=== PATIENT | female | born 1965 | race African-American/Black ===

== ENCOUNTER 2017-09-26 06:09 | Day surgery (SDC) | payer OTHER ==
[2017-09-17 13:56] VITALS: BMI 31.9
[2017-09-26] MEDS ORDERED: PROPOFOL 20 ML ONE (07:11)
[2017-09-26] MEDS ORDERED: SUCCINYLCHOLINE CHLORIDE 200 MG/10 ML VIAL ONE (07:11)
[2017-09-26] MEDS ORDERED: MIDAZOLAM HCL 2 MG/2 ML SINGLE DOSE VIAL ONE (07:12)
[2017-09-26] MEDS ORDERED: LIDOCAINE HCL 2% (20ML MULTI-DOSE VIAL) NR ONE (07:21)
[2017-09-26] MEDS ORDERED: LIDOCAINE HCL 2% (50ML VIAL) INF ONE (07:35)
[2017-09-26] MEDS ORDERED: oxyCODONE HCL 5 MG TABLET PO PRN ×2 (08:24)
[2017-09-26] MEDS ORDERED: PROMETHAZINE HCL 25 MG/1 ML VIAL IVPUSH PRN (08:24)
[2017-09-26] MEDS ORDERED: ONDANSETRON 4 MG/2 ML VIAL IVPUSH PRN (08:24)
[2017-09-26] MEDS ORDERED: LACTATED RINGERS SOLUTION 1,000 ML IV SCH (08:30)
--- NOTE | 2017-09-26 08:45 | OP ---
DATE OF OPERATION: 09/26/2017 PREOPERATIVE DIAGNOSIS: Left carpal tunnel syndrome. POSTOPERATIVE DIAGNOSIS: Left carpal tunnel syndrome. OPERATIVE PROCEDURE: Left carpal tunnel release. ANESTHESIA: Local with sedation. COMPLICATIONS: None. ESTIMATED BLOOD LOSS: Minimal. INDICATION FOR PROCEDURE: The patient is a 52-year-old female with the above finding indicated for operative treatment. Risks, benefits, alternatives were discussed with the patient at length. Proper informed consent was obtained. DESCRIPTION OF PROCEDURE: After preoperative identification of patient, correct operative site, patient brought to the operating room, placed supine on the operating table with all prominences well padded. Sedation was given by the anesthesiologist. Local anesthesia was given, 2% lidocaine. Left upper extremity was prepped and draped in the usual sterile fashion. Well-padded tourniquet was placed over the sterile prep. Esmarch bandage used to exsanguinate left upper extremity. Tourniquet was inflated to 250 mmHg. Longitudinal incision was made over the proximal aspect of the palm. Incision was taken sharply through skin with blunt and sharp dissection through subcutaneous tissues. Palmar fascia was divided longitudinally. Transverse carpal ligament was divided longitudinally along with the distal 4 cm of antebrachial fascia under direct visualization with loupe magnification. This provided complete release of the median nerve at the wrist. Wound was irrigated with saline and repaired with a 5-0 nylon suture. Sterile dressings were applied. Patient was brought to the recovery room in stable condition. She tolerated the procedure well. ROLANDO BARGER M.D. [id number]
[2017-09-26 09:07] VITALS: BP 126/74; PULSE 74; TEMP 98.2
== END 2017-09-26 08:55 | disposition home or self-care (01) ==
LOC: FASU 06:09
PROVIDERS: ATTEND Orthopaedic Surgery Hand Surgery
PROC: 01N50ZZ Release Median Nerve, Open Approach (ICD-10-PCS; principal; 2017-09-26 07:30)
DX: G56.02 Carpal tunnel syndrome, left upper limb (principal)

== ENCOUNTER 2017-10-10 08:11 | Day surgery (SDC) | payer OTHER ==
[2017-10-09 11:17] VITALS: BMI 31.9
[2017-10-10] MEDS ORDERED: PROPOFOL 20 ML ONE ×2 (09:27)
[2017-10-10] MEDS ORDERED: MIDAZOLAM HCL 2 MG/2 ML SINGLE DOSE VIAL ONE (09:28)
[2017-10-10] MEDS ORDERED: LIDOCAINE HCL 2% (50ML VIAL) INF ONE (10:05)
[2017-10-10 11:02] VITALS: PULSE 74; TEMP 97.7
[2017-10-10 11:21] VITALS: BP 108/71
--- NOTE | 2017-10-10 18:43 | OP ---
DATE OF OPERATION: 10/10/2017 PREOPERATIVE DIAGNOSIS: Right carpal tunnel syndrome. POSTOPERATIVE DIAGNOSIS: Right carpal tunnel syndrome. OPERATIVE PROCEDURE: Right carpal tunnel release. ANESTHESIA: Local with sedation. COMPLICATIONS: None. ESTIMATED BLOOD LOSS: Minimal. INDICATIONS FOR PROCEDURE: The patient is a 52-year-old female with the above finding, indicated for operative treatment. Risks, benefits, alternatives were discussed with patient at length. Proper informed consent was obtained. PROCEDURE: After proper identification of patient and correct operative site, patient brought to operating room, placed supine on the table, prominences well padded. Sedation was given by the anesthesiologist. Local anesthesia was given, 2% lidocaine. A longitudinal incision was made in the proximal aspect of the palm. Incision was taken sharply through the skin with blunt and sharp dissection through the subcutaneous tissues. Palmar fascia was divided longitudinally. Transverse carpal ligament along with the distal 4 cm of antebrachial fascia were divided longitudinally under direct visualization with loupe magnification. This provided complete release of the median nerve at the wrist. The wound was irrigated with saline and repaired with a 5-0 nylon suture. Sterile dressings were applied. Patient was reversed from anesthesia and brought to recovery room in stable condition. She tolerated procedure well. Marielos [id number]
== END 2017-10-10 11:25 | disposition home or self-care (01) ==
LOC: FASU 08:11
PROVIDERS: ATTEND Orthopaedic Surgery Hand Surgery
PROC: 01N50ZZ Release Median Nerve, Open Approach (ICD-10-PCS; principal; 2017-10-10 09:58)
DX: G56.01 Carpal tunnel syndrome, right upper limb (principal)
CPT/HCPCS: 84703

== ENCOUNTER 2018-10-23 06:20 | Day surgery (SDC) | payer BC, OTHER ==
[2018-10-14 17:26] VITALS: BMI 32.1
[2018-10-23] MEDS ORDERED: LIDOCAINE HCL 2% (20ML MULTI-DOSE VIAL) NR ONE (07:18)
[2018-10-23] MEDS ORDERED: PROPOFOL 20 ML ONE (07:21)
[2018-10-23] MEDS ORDERED: MIDAZOLAM HCL 2 MG/2 ML SINGLE DOSE VIAL ONE (07:22)
[2018-10-23] MEDS ORDERED: SUCCINYLCHOLINE CHLORIDE 200 MG/10 ML VIAL ONE (07:24)
[2018-10-23] MEDS ORDERED: ONDANSETRON 4 MG/2 ML VIAL ONE ×2 (07:56→09:07)
[2018-10-23] MEDS ORDERED: DEXAMETHASONE SOD PHOSPHATE 4 MG/1 ML VIAL ONE (07:56)
[2018-10-23] MEDS ORDERED: CLINDAMYCIN PHOSPHATE 600 MG/4 ML VIAL ONE (07:57)
[2018-10-23] MEDS ORDERED: BUPIVACAINE HCL 0.25% 125 MG/50 ML VIAL ONE (08:36)
[2018-10-23] MEDS ORDERED: BUPIVACAINE HCL/PF 0.25% (2.5MG/ML) 10 ML VIAL IJ ONE (08:37)
[2018-10-23] MEDS ORDERED: ONDANSETRON 4 MG/2 ML VIAL IVPUSH ONE (09:05)
[2018-10-23] MEDS ORDERED: ONDANSETRON 4 MG/2 ML VIAL IVPUSH PRN (09:44)
[2018-10-23] MEDS ORDERED: oxyCODONE HCL 5 MG TABLET PO PRN ×2 (09:44)
[2018-10-23] MEDS ORDERED: LACTATED RINGERS SOLUTION 1,000 ML IV SCH (09:45)
[2018-10-23 09:59] VITALS: PULSE 66; TEMP 97.7
[2018-10-23 10:21] VITALS: BP 120/78
--- NOTE | 2018-10-24 17:06 | OP ---
DATE OF OPERATION: 10/23/2018 PREOPERATIVE DIAGNOSIS: Left wrist volar radial mass. POSTOPERATIVE DIAGNOSIS: Left wrist volar radial mass. OPERATIVE PROCEDURE: Left wrist mass excision. SURGEON: Isaias Barger M.D. ANESTHESIA: General anesthesia. COMPLICATIONS: None. ESTIMATED BLOOD LOSS: Minimal. INDICATION FOR PROCEDURE: The patient is a 53-year-old female with massive left volar radial wrist. She was indicated for operative treatment. Risks, benefits, and alternatives were discussed with the patient at length. Proper informed consent was obtained. DESCRIPTION OF PROCEDURE: After proper identification of the patient and correct operative site, patient was brought to the operating room and placed supine on the operating room table, all bony prominences well padded. General anesthesia was provided by the anesthesiologist adequate for the procedure. Left upper extremity was prepped and draped in the usual sterile fashion. Well padded tourniquet was placed with a sterile prep. Esmarch bandage to exsanguinate the left upper extremity. Tourniquet inflated to 250 mmHg. A curvilinear incision was made over the volar radial aspect of the wrist over the mass. The incision was taken sharply through the skin with sharp and blunt dissection subcutaneous tissues. Radial artery was dissected off the mass, and the mass was found to be cystic in nature and coming from the radial carpal joint, a window where the stalk was coming out of the radial carpal joint was made and cauterized. The mass was excised in whole, sent for pathological evaluation. Tourniquet was released, excellent perfusion to the hand was noted with no bleeding in the area . The wound was repaired using a 5-0 fast absorbing plain gut. Sterile dressings were applied. Patient reversed from anesthesia, brought to recovery room in stable condition. She tolerated procedure well. ISAIAS BARGER M.D. [id number]
--- NOTE | 2018-10-25 13:05 | PATH ---
Surgical Pathology Report Patient Name: MORENO SEVILLA [facility]. Rec. #: [id number] /Age/Gender: 1965 (Age: 53) / F Account: [id number] Location: [facility] Taken: 10/23/2018 Received: 10/23/2018 Reported: 10/25/2018 Physicians: Isaias Crockett M.D. Specimen(s) Received MASS OF LEFT WRIST Clinical History Left wrist mass Final Diagnosis WRIST, LEFT, MASS, EXCISION: GANGLION CYST. Electronically Signed Shana Pinedo M.D. Gross Description Received in formalin labeled "left wrist mass," is a 1.4 x 1.0 x 0.3 cm cystic structure containing clear mucinous material. The specimen is serially sectioned and entirely submitted in one cassette. /10/23/201810/23/2018
== END 2018-10-23 10:26 | disposition home or self-care (01) ==
LOC: FASU 06:20
PROVIDERS: ATTEND Orthopaedic Surgery Hand Surgery
PROC: 0LB60ZZ Excision of Left Lower Arm and Wrist Tendon, Open Approach (ICD-10-PCS; principal; 2018-10-23 08:03)
DX: M67.432 Ganglion, left wrist (principal)
CPT/HCPCS: 88304-TC; 94760